=== PATIENT | male | born 1960 | race African-American/Black ===

== ENCOUNTER 2019-06-12 14:40 | Emergency (ER) | payer OTHER ==
[~2019-06-12] VITALS: Ht 188 cm; Wt 95.3 kg
[2019-06-12] MEDS ORDERED: LORazepam 2MG/ML-1ML VIAL ONE (14:51)
[2019-06-12] MEDS ORDERED: HALOPERIDOL LACTATE 5 MG/ML INJ VIAL ONE (14:51)
[2019-06-12] MEDS ORDERED: VANCOMYCIN 1GM/250ML 250 ML IV ONE (15:00)
[2019-06-12] MEDS ORDERED: PIPERACILLIN-TAZOB 3.375GM 100 ML IV ONE (15:00)
[2019-06-12] MEDS ORDERED: LORazepam 2MG/ML-1ML VIAL IV ONE ×2 (15:15→19:05)
[2019-06-12] MEDS ORDERED: HALOPERIDOL LACTATE 5 MG/ML INJ VIAL IM ONE (15:15)
[2019-06-12 15:40] LABS: Lactic Acid w/Reflex 2.1 mmol/L (0.4-2.0)
[2019-06-12 16:17] LABS: Urine Bacteria NONE SEEN /hpf (None Seen); Urine Blood 3+ /uL (Negative); Urine Mucus FEW (None Seen); Urine Specific Gravity 1.019 (1.001-1.035); Urine WBC 23 /hpf (0 - 3)
[2019-06-12 17:32] LABS: Basophils # (auto) 0.1 uL; Basophils % (auto) 0.9 % (0.0-2.0); Eosinophils # (auto) 0 uL; Eosinophils % (auto) 0.2 % (0.0-7.0); Hematocrit 42.9 % (41.0-53.0); Hemoglobin 13.8 g/dL (13.5-17.5); Lymphocytes # (auto) 1.9 uL; Mean Corpuscular Hemoglobin 29.7 pg (28.0-32.0); Mean Corpuscular Hgb Conc. 32.1 g/dL (32.0-36.0); Mean Corpuscular Volume 92.5 fL (80.0-100.0); Monocytes # (auto) 1.6 uL; Monocytes % (auto) 15.3 % (0.0-12.0); Neutrophils % (auto) 65.6 % (37.0-80.0); Platelet Count (auto) 545 10^3/uL (140-450); Red Blood Cells 4.64 10^6/uL (4.5-5.90); Red Cell Distribution Width 15.5 % (11.8-14.3); White Blood Cell 10.6 10^3/uL (4.4-10.8)
[2019-06-12 18:09] LABS: Albumin 2.9 g/dL (3.4-5.0); BUN/Creatinine Ratio 12.5; Calcium 8.3 mg/dL (8.5-10.1); Potassium 3.8 mmol/L (3.5-5.1)
[2019-06-12 18:13] LABS: Bilirubin, Total 0.5 mg/dL (0.2-1.0); Total Protein 7.2 g/dL (6.4-8.2)
[2019-06-12 19:15] VITALS: BP 112/81
== END 2019-06-12 20:27 | disposition home or self-care (01) ==
LOC: ER 14:40
DX: G93.41 Metabolic encephalopathy (principal); N39.0 Urinary tract infection, site not specified; I10 Essential (primary) hypertension; I25.2 Old myocardial infarction; Z87.440 Personal history of urinary (tract) infections; R31.9 Hematuria, unspecified
CPT/HCPCS: 36415; 70450; 71250; 74176; 80053; 81001; 83605; 84484; 85025; 87040; 87086; 87088; 87186; 93970; 96365; 96366; 96368; 96372; 96375; 99291; J1630; J2060; J2543; J3370